=== PATIENT | female | born 1950 | race Caucasian/White ===

== ENCOUNTER 2017-10-06 15:39 | Inpatient (IN) | payer OTHER ==
[2017-10-06] MEDS ORDERED: ALPRAZolam 0.25 MG TABLET PO (16:45)
[2017-10-06] MEDS ORDERED: ACETAMINOPHEN 325 MG TABLET. PO (17:00)
[2017-10-06] MEDS ORDERED: MORPHINE SULFATE 2 MG/ML DISP.SYRIN. IV (17:00)
[2017-10-06] MEDS ORDERED: ONDANSETRON PF 4 MG/2 ML VIAL. IV (17:00)
[2017-10-06] MEDS ORDERED: traMADol 50 MG TABLET PO (17:00)
[2017-10-06] MEDS ORDERED: hydrALAZINE 20 MG/ML VIAL. IVP (17:00)
[2017-10-06] MEDS ORDERED: DOCUSATE SODIUM 100 MG CAPSULE. PO (17:00)
[2017-10-06] MEDS: ASPIRIN 325 MG TABLET PO (17:30)
[2017-10-06] MEDS ORDERED: SENNOSIDES 8.6 MG TABLET PO (17:30)
[2017-10-06] MEDS ORDERED: MECLIZINE HCL 12.5 MG TABLET. PO (17:30)
[2017-10-06 18:12] LABS: TROPONINI < 0.017 ng/mL (0.000-0.055)
[2017-10-06 18:16] LABS: CKMB MASS 0.9 ng/mL (0.0-3.6); CREATINE KINASE 51 U/L (26-192)
[2017-10-06] MEDS: busPIRone 10 MG TABLET. PO (21:16)
[2017-10-06] MEDS: METOPROLOL SUCC 24HR ER 50 MG TAB.ER.24H. PO (21:16)
[2017-10-06] MEDS: CYCLOBENZAPRINE 10 MG TABLET. PO (21:16)
[2017-10-06] MEDS: PARoxetine 20 MG TABLET PO (21:17)
[2017-10-07 04:26] LABS: ADD MAN DIFF? NO
[2017-10-07 04:31] LABS: BASO # 0.1 x10^3/uL (0.0-0.2); BASO % 1 % (0-3); EOS # 0.3 x10^3/uL (0.0-0.7); EOS % 4 % (0-3); HEMATOCRIT 41.6 % (36.0-47.0); HEMOGLOBIN 13.8 g/dL (12.0-15.5); LYMPH # 2.4 x10^3/uL (1.0-4.8); LYMPH % 33 % (24-48); MEAN CORPUSCULAR HEMOGLOBIN 27 pg (25-35); MEAN CORPUSCULAR HGB CONC 33 g/dL (31-37); MEAN CORPUSCULAR VOLUME 82 fL (79-100); MONO # 0.4 x10^3/uL (0.0-1.1); MONO % 6 % (0-9); NEUT # 4.1 x10^3uL (1.8-7.7); NEUT % 57 % (31-73); PLATELET COUNT 275 x10^3/uL (140-400); RED CELL DISTRIBUTION WIDTH 18.5 % (11.5-14.5); WHITE BLOOD COUNT 7.2 x10^3/uL (4.0-11.0)
[2017-10-07 05:02] LABS: ANION GAP 9 (6-14); BLOOD UREA NITROGEN 37 mg/dL (7-20); CALCIUM 9.5 mg/dL (8.5-10.1); CARBON DIOXIDE 27 mmol/L (21-32); CHLORIDE 102 mmol/L (98-107); CHOLESTEROL 298 mg/dL (0-200); CREATININE 1.6 mg/dL (0.6-1.0); GFR 32.5; GLUCOSE 103 mg/dL (70-99); HDLC 45 mg/dL (40-60); LDLC 228 mg/dL (0-100); NON-HDL CHOLESTEROL 253 mg/dL (0-129); POTASSIUM 4.2 mmol/L (3.5-5.1); SODIUM 138 mmol/L (136-145); TRIGLYCERIDES 125 mg/dL (0-150); VLDLC 25 mg/dL (0-40)
[2017-10-07 05:04] LABS: CHOLESTEROL/HDL RATIO 6.6
[2017-10-07 05:17] LABS: THYROID STIM HORMONE (TSH) 46.403 uIU/mL (0.358-3.74)
[2017-10-07] MEDS ORDERED: IODIXANOL 320 MG/ML 100 ML VIAL. (07:05)
[2017-10-07] MEDS ORDERED: LIDOCAINE 2% 20 ML VIAL. (07:05)
[2017-10-07] MEDS ORDERED: fentaNYL PF VIAL 100 MCG/2 ML VIAL (07:31)
[2017-10-07] MEDS ORDERED: MIDAZOLAM HCL/PF 2 MG/2 ML VIAL. (07:31)
[2017-10-07] MEDS ORDERED: HEPARIN for IV BOLUS 10,000 UNIT/10 ML VIAL. (07:43)
[2017-10-07] MEDS ORDERED: VERAPAMIL 5 MG/2 ML VIAL. (07:44)
[2017-10-07] MEDS ORDERED: NITROGLYCERIN 200 MCG/2 ML SYRINGE FOR CATH/VASC LAB. (07:44)
[2017-10-07] MEDS: MIDAZOLAM HCL/PF 2 MG/2 ML VIAL. IV (08:24)
[2017-10-07] MEDS: fentaNYL PF VIAL 100 MCG/2 ML VIAL IV (08:24)
[2017-10-07] MEDS: NITROGLYCERIN 200 MCG/2 ML SYRINGE FOR CATH/VASC LAB. IART (08:25)
[2017-10-07] MEDS: LIDOCAINE 2% 20 ML VIAL. IJ (08:25)
[2017-10-07] MEDS: IODIXANOL 320 MG/ML 100 ML VIAL. IART (08:26)
[2017-10-07] MEDS: VERAPAMIL 5 MG/2 ML VIAL. IART (08:26)
[2017-10-07] MEDS: HEPARIN for IV BOLUS 10,000 UNIT/10 ML VIAL. IART (08:29)
[2017-10-07] MEDS: BUMETANIDE 1 MG TABLET. PO (09:35)
[2017-10-07] MEDS: LEVOTHYROXINE 100 MCG TABLET PO (09:35)
[2017-10-07] MEDS: POTASSIUM CHLORIDE 10 MEQ TABLET.ER. PO (09:35)
[2017-10-07] MEDS: busPIRone 10 MG TABLET. PO (09:36)
[2017-10-07] MEDS: IV 1/2 NORMAL SALINE 1,000 ML IV (09:37)
== END 2017-10-07 18:26 | disposition home or self-care (01) | DRG 287 ==
LOC: 2 NORTH 15:39
PROC: 4A023N7 Measurement of Cardiac Sampling and Pressure, Left Heart, Percutaneous Approach (ICD-10-PCS; principal; 2017-10-07)
PROC: B2151ZZ Fluoroscopy of Left Heart using Low Osmolar Contrast (ICD-10-PCS; 2017-10-07)
PROC: B2111ZZ Fluoroscopy of Multiple Coronary Arteries using Low Osmolar Contrast (ICD-10-PCS; 2017-10-07)
DX: R07.9 Chest pain, unspecified (principal); I10 Essential (primary) hypertension; I48.91 Unspecified atrial fibrillation; E78.5 Hyperlipidemia, unspecified; E03.9 Hypothyroidism, unspecified; Z86.011 Personal history of benign neoplasm of the brain; Z82.49 Family history of ischemic heart disease and other diseases of the circulatory system; Z87.891 Personal history of nicotine dependence; Z79.01 Long term (current) use of anticoagulants
CPT/HCPCS: 36415; 71045; 80048; 80061; 82553; 84443; 84484; 85025; 93005; 93306; 93458; 97110-GP; 97162-GP; 97165-GO; 99152; 99153; C1769; C1892; J1644; J2001; J2250; J3010; J3490